=== PATIENT | male | born 1960 | race African-American/Black ===

== ENCOUNTER 2017-09-29 18:21 | Inpatient (IN) | payer MEDICAID, OTHER ==
[~2017-09-29] VITALS: Ht 170.2 cm; Wt 77.8 kg
[2017-09-29 19:32] LABS: INR 1.13 (0.9-1.15); Partial Thromboplastin Time 33.1 sec (22.64-33.71); Prothrombin Time 12.3 sec (9.37-12.3)
[2017-09-29 19:33] LABS: Albumin 2.8 g/dL (3.4-5.0); BUN/Creatinine Ratio 15.8; Calcium 8.2 mg/dL (8.5-10.1); Potassium 4.4 mmol/L (3.5-5.1)
[2017-09-29 19:35] LABS: Basophils # (auto) 0 uL; Basophils % (auto) 1.1 % (0.0-2.0); Eosinophils # (auto) 0.1 uL; Eosinophils % (auto) 3.2 % (0.0-7.0); Hemoglobin 10.7 g/dL (13.5-17.5); Lymphocytes # (auto) 0.8 uL; Lymphocytes % (auto) 19.9 % (10.0-50.0); Mean Corpuscular Hemoglobin 32.7 pg (28.0-32.0); Mean Corpuscular Hgb Conc. 32.5 g/dL (32.0-36.0); Mean Corpuscular Volume 100.8 fL (80.0-100.0); Monocytes # (auto) 0.4 uL; Monocytes % (auto) 10.1 % (0.0-12.0); Neutrophils # (auto) 2.7 uL; Neutrophils % (auto) 65.7 % (37.0-80.0); Nucleated Red Blood Cells % 0.4 %; Platelet Count (auto) 200 10^3/uL (140-450); Red Blood Cells 3.27 10^6/uL (4.5-5.90); Red Cell Distribution Width 16.1 % (11.8-14.3); White Blood Cell 4.1 10^3/uL (4.4-10.8)
[2017-09-29 19:38] LABS: Bilirubin, Total 0.4 mg/dL (0.2-1.0); Total Protein 7.4 g/dL (6.4-8.2)
[2017-09-29] MEDS ORDERED: FUROSEMIDE 20 MG/2 ML VIAL IV ONE (23:30)
[2017-09-29 23:47] LABS: Basophils # (auto) 0 uL; Basophils % (auto) 1.2 % (0.0-2.0); Eosinophils # (auto) 0.1 uL; Eosinophils % (auto) 3.7 % (0.0-7.0); Hematocrit 30.8 % (41.0-53.0); Hemoglobin 10.1 g/dL (13.5-17.5); Lymphocytes # (auto) 0.7 uL; Mean Corpuscular Hemoglobin 33.1 pg (28.0-32.0); Mean Corpuscular Hgb Conc. 32.6 g/dL (32.0-36.0); Mean Corpuscular Volume 101.4 fL (80.0-100.0); Monocytes # (auto) 0.5 uL; Monocytes % (auto) 13.4 % (0.0-12.0); Neutrophils # (auto) 2.5 uL; Neutrophils % (auto) 63.7 % (37.0-80.0); Nucleated Red Blood Cells % 0.1 %; Platelet Count (auto) 193 10^3/uL (140-450); Red Blood Cells 3.04 10^6/uL (4.5-5.90); Red Cell Distribution Width 16.1 % (11.8-14.3)
[2017-09-30 00:07] LABS: Albumin 2.7 g/dL (3.4-5.0); BUN/Creatinine Ratio 16.9; Calcium 8.5 mg/dL (8.5-10.1); Potassium 4.3 mmol/L (3.5-5.1)
[2017-09-30 00:12] LABS: Bilirubin, Total 0.4 mg/dL (0.2-1.0); Total Protein 6.9 g/dL (6.4-8.2)
[2017-09-30] MEDS ORDERED: ALBUTEROL SULF 2.5 MG/0.5ML(0.5%) NEB SOLN NEB PRN (03:30)
[2017-09-30] MEDS ORDERED: cloNIDine HCL 0.1 MG TAB PO PRN (03:30)
[2017-09-30] MEDS ORDERED: DOCUSATE SOD 100 MG CAP PO PRN (03:30)
[2017-09-30] MEDS ORDERED: HYDROcodone-ACET 5/325MG TAB PO PRN (03:30)
[2017-09-30] MEDS ORDERED: MORPHINE SULFATE 4 MG/ML SYR/VIAL IV PRN (03:30)
[2017-09-30] MEDS ORDERED: ONDANSETRON HCL 4 MG/2 ML VIAL IV PRN (03:30)
[2017-09-30] MEDS ORDERED: NITROGLYCERIN 0.4 MG SL TAB SL PRN (03:30)
[2017-09-30] MEDS ORDERED: ACETAMINOPHEN 325 MG TAB PO PRN (03:30)
[2017-09-30] MEDS: FUROSEMIDE 20 MG/2 ML VIAL IV SCH ×2 (06:13→18:16)
[2017-09-30] MEDS ORDERED: FUROSEMIDE 40 MG/4 ML VIAL IV ONE (09:15)
[2017-09-30 09:18] VITALS: BP 146/103
[2017-09-30] MEDS ORDERED: ENOXAPARIN SOD 30 MG/0.3 ML SYRINGE SC SCH (10:00)
[2017-09-30] MEDS ORDERED: LISINOPRIL 10 MG TAB PO SCH (10:00)
[2017-09-30] MEDS: CARVEDILOL 12.5 MG TAB PO SCH ×2 (10:08→22:00)
[2017-09-30] MEDS: PANTOPRAZOLE 40 MG TAB PO SCH (10:08)
[2017-09-30 10:13] LABS: Protein, Urine 19.4 mg/dL (0.0-11.9)
[2017-09-30 12:39] LABS: Urine Bacteria FEW /hpf (None Seen); Urine Blood 2+ /uL (Negative); Urine Specific Gravity 1.009 (1.001-1.035); Urine WBC 1 /hpf (0 - 3)
[2017-09-30] MEDS ORDERED: OMEP-263 (13:35)
[2017-09-30] MEDS ORDERED: SIMV-8 (13:35)
[2017-09-30] MEDS ORDERED: ALBU1.257 (13:35)
[2017-09-30] MEDS ORDERED: CARV12.544 (13:35)
[2017-09-30] MEDS ORDERED: MELO1TAB56 (13:35)
[2017-09-30] MEDS ORDERED: hydrALAZINE HCL 20 MG/ML VL IV PRN (15:00)
[2017-09-30] MEDS ORDERED: ASPirin-EC 81 mg tab PO ONE (15:15)
[2017-09-30 17:20] VITALS: BP 150/112
[2017-09-30 17:30] VITALS: BP 150/112
[2017-09-30 19:17] LABS: % Iron Saturation 15.3 % (20-55)
[2017-09-30 22:00] VITALS: BP 133/84
[2017-09-30] MEDS: ATORVASTATIN 20 MG TAB PO SCH (22:00)
[2017-10-01 05:42] VITALS: BP 145/97
[2017-10-01] MEDS: FUROSEMIDE 20 MG/2 ML VIAL IV SCH ×2 (06:02→18:16)
[2017-10-01 06:55] LABS: Basophils # (auto) 0 uL; Basophils % (auto) 0.6 % (0.0-2.0); Eosinophils # (auto) 0.1 uL; Eosinophils % (auto) 2.8 % (0.0-7.0); Hematocrit 34.7 % (41.0-53.0); Hemoglobin 11.4 g/dL (13.5-17.5); Lymphocytes # (auto) 0.8 uL; Mean Corpuscular Hgb Conc. 32.7 g/dL (32.0-36.0); Mean Corpuscular Volume 100.9 fL (80.0-100.0); Monocytes # (auto) 0.4 uL; Neutrophils # (auto) 2.3 uL; Neutrophils % (auto) 62.6 % (37.0-80.0); Nucleated Red Blood Cells % 0.3 %; Platelet Count (auto) 212 10^3/uL (140-450); Red Blood Cells 3.44 10^6/uL (4.5-5.90); Red Cell Distribution Width 15.4 % (11.8-14.3); White Blood Cell 3.6 10^3/uL (4.4-10.8)
[2017-10-01 07:21] LABS: Albumin 3.1 g/dL (3.4-5.0); BUN/Creatinine Ratio 16.7; Bilirubin, Direct 0.2 mg/dL (0-0.2); Bilirubin, Total 0.5 mg/dL (0.2-1.0); Calcium 8.8 mg/dL (8.5-10.1); Phosphorus 2.9 mg/dL (2.5-4.90); Potassium 3.7 mmol/L (3.5-5.1); Total Protein 7.6 g/dL (6.4-8.2); Uric Acid 9.3 mg/dL (3.5-7.2)
[2017-10-01 10:02] VITALS: BP 138/89
[2017-10-01] MEDS: ASPirin-EC 81 mg tab PO SCH (10:48)
[2017-10-01] MEDS: CARVEDILOL 12.5 MG TAB PO SCH ×2 (10:49→22:11)
[2017-10-01] MEDS: PANTOPRAZOLE 40 MG TAB PO SCH (10:50)
[2017-10-01] MEDS: ENOXAPARIN SOD 40 MG/0.4 ML SYRINGE SC SCH (10:51)
[2017-10-01 13:00] VITALS: BP 114/71
[2017-10-01 17:15] VITALS: BP 143/115
[2017-10-01] MEDS ORDERED: ACET-1156 PO (18:16)
[2017-10-01] MEDS ORDERED: ASPI325T4 PO (18:16)
[2017-10-01] MEDS ORDERED: BIS10RS PR (18:16)
[2017-10-01] MEDS ORDERED: ALBU1.257 IN (18:16)
[2017-10-01] MEDS ORDERED: FER325T PO (18:16)
[2017-10-01] MEDS ORDERED: MOMLQ PO (18:16)
[2017-10-01] MEDS ORDERED: OMEP20TA PO (18:16)
[2017-10-01] MEDS ORDERED: MULTTAB99 PO (18:16)
[2017-10-01] MEDS ORDERED: SODIENE35 RE (18:16)
[2017-10-01] MEDS ORDERED: CARV12.544 PO (18:16)
[2017-10-01 22:00] VITALS: BP 129/98
[2017-10-01] MEDS: ATORVASTATIN 20 MG TAB PO SCH (22:11)
[2017-10-02 05:00] VITALS: BP 139/97
[2017-10-02] MEDS: FUROSEMIDE 20 MG/2 ML VIAL IV SCH ×2 (05:58→17:37)
[2017-10-02 06:30] LABS: Calcium 8.5 mg/dL (8.5-10.1); Potassium 3.6 mmol/L (3.5-5.1)
[2017-10-02 06:34] LABS: BUN/Creatinine Ratio 16.7
[2017-10-02 09:00] VITALS: BP_SYST 117; BP_SYST 149; BP_DIAS 52; BP_DIAS 99
[2017-10-02] MEDS: PANTOPRAZOLE 40 MG TAB PO SCH (11:00)
[2017-10-02] MEDS: ASPirin-EC 81 mg tab PO SCH (11:00)
[2017-10-02] MEDS: CARVEDILOL 12.5 MG TAB PO SCH (11:00)
[2017-10-02] MEDS: ENOXAPARIN SOD 40 MG/0.4 ML SYRINGE SC SCH (11:01)
[2017-10-02 13:09] VITALS: BP 155/99
[2017-10-02 17:00] VITALS: BP 158/109
[2017-10-02 17:09] VITALS: BP 149/97
[2017-10-02 17:24] VITALS: BP 149/99
== END 2017-10-02 18:25 | disposition home or self-care (01) | DRG 469 ==
LOC: ER 18:26 → TELE 18:27 → TELE-WESTW 09-30 16:55
PROVIDERS: ADMIT Nurse Practitioner; ATTEND Family Medicine
DX: N17.0 Acute kidney failure with tubular necrosis (principal); J96.21 Acute and chronic respiratory failure with hypoxia; E43 Unspecified severe protein-calorie malnutrition; N18.3 Chronic kidney disease, stage 3 (moderate); I13.0 Hypertensive heart and chronic kidney disease with heart failure and stage 1 through stage 4 chronic kidney disease, or unspecified chronic kidney disease; D63.8 Anemia in other chronic diseases classified elsewhere; E78.5 Hyperlipidemia, unspecified; K59.00 Constipation, unspecified; N39.0 Urinary tract infection, site not specified; I49.5 Sick sinus syndrome; R79.89 Other specified abnormal findings of blood chemistry; N28.0 Ischemia and infarction of kidney; F03.90 Unspecified dementia, unspecified severity, without behavioral disturbance, psychotic disturbance, mood disturbance, and anxiety; Z95.0 Presence of cardiac pacemaker; I25.10 Atherosclerotic heart disease of native coronary artery without angina pectoris; I50.43 Acute on chronic combined systolic (congestive) and diastolic (congestive) heart failure; Z86.73 Personal history of transient ischemic attack (TIA), and cerebral infarction without residual deficits; Z68.26 Body mass index [BMI] 26.0-26.9, adult; I25.2 Old myocardial infarction; I34.0 Nonrheumatic mitral (valve) insufficiency
CPT/HCPCS: 36415; 71045; 76775; 80048; 80053; 80061; 80076; 81001; 82306; 82550; 82570; 83540; 83550; 83735; 83880; 84100; 84156; 84300; 84443; 84484; 84550; 85025; 85610; 85730; 87081; 93005; 93306; 96372; 96374; 96375

== ENCOUNTER 2018-02-02 13:51 | Inpatient (IN) | payer MEDICAID ==
[~2018-02-02] VITALS: Ht 185.4 cm; Wt 79.1 kg
[~2018-02-02 13:51] MED LIST: ACET-1156 PO; ALBU1.257 IN; ASPI-378 PO; ATO40T PO; BIS10RS PR; CARV12.544 PO; FER325T PO; FURO40TA PO; MOMLQ PO; MULTTAB99 PO; POTA1TAB61 PO; SODIENE35 RE
[2018-02-02 15:21] LABS: Basophils # (auto) 0 uL; Basophils % (auto) 0.5 % (0.0-2.0); Eosinophils # (auto) 0.1 uL; Lymphocytes # (auto) 0.4 uL; Monocytes # (auto) 0.4 uL; Monocytes % (auto) 10.5 % (0.0-12.0); Nucleated Red Blood Cells % 0.2 %
[2018-02-02 15:23] LABS: Eosinophils % (auto) 2.1 % (0.0-7.0); Hematocrit 31.6 % (41.0-53.0); Hemoglobin 10.8 g/dL (13.5-17.5); Lymphocytes % (auto) 10.7 % (10.0-50.0); Mean Corpuscular Hemoglobin 34.8 pg (28.0-32.0); Mean Corpuscular Hgb Conc. 34.2 g/dL (32.0-36.0); Mean Corpuscular Volume 101.7 fL (80.0-100.0); Neutrophils # (auto) 3.2 uL; Neutrophils % (auto) 76.2 % (37.0-80.0); Platelet Count (auto) 164 10^3/uL (140-450); Red Blood Cells 3.11 10^6/uL (4.5-5.90); Red Cell Distribution Width 14.7 % (11.8-14.3); White Blood Cell 4.2 10^3/uL (4.4-10.8)
[2018-02-02 15:35] LABS: Albumin 3.2 g/dL (3.4-5.0); BUN/Creatinine Ratio 22.1; Bilirubin, Total 0.6 mg/dL (0.2-1.0); Calcium 8.2 mg/dL (8.5-10.1); Magnesium 2.2 mg/dL (1.6-2.6); Potassium 3.9 mmol/L (3.5-5.1); Total Protein 7.6 g/dL (6.4-8.2)
[2018-02-02] MEDS ORDERED: ACETAMINOPHEN 325 MG TAB PO PRN (18:00)
[2018-02-02] MEDS ORDERED: NITROGLYCERIN 0.4 MG SL TAB SL PRN (18:00)
[2018-02-02] MEDS ORDERED: MILK OF MAGNESIA 30ML SUSP PO PRN (18:00)
[2018-02-02] MEDS ORDERED: ONDANSETRON HCL 4 MG/2 ML VIAL IV PRN (18:00)
[2018-02-02] MEDS ORDERED: DOCUSATE SOD 100 MG CAP PO PRN (18:00)
[2018-02-02] MEDS ORDERED: MORPHINE SULF INJ 2 MG/ML SYRINGE 1ML IV PRN (18:00)
[2018-02-02] MEDS: ALBUTEROL SULF 2.5 MG/0.5ML(0.5%) NEB SOLN NEB SCH ×2 (18:40→22:37)
[2018-02-02] MEDS: FUROSEMIDE 40 MG/4 ML VIAL IV SCH (18:47)
[2018-02-02 19:02] VITALS: BP 154/120
[2018-02-02] MEDS: Ensure Enlive Strawberry 8oz Bottle PO SCH (19:36)
[2018-02-02] MEDS: HYDROcodone-ACET 5/325MG TAB PO PRN (19:36)
[2018-02-02] MEDS: FERROUS SULFATE 325 MG TAB PO SCH (19:36)
[2018-02-02] MEDS: CARVEDILOL 12.5 MG TAB PO SCH (19:37)
[2018-02-02 21:40] VITALS: BP 143/104
[2018-02-02] MEDS: ATORVASTATIN 20 MG TAB PO SCH (23:27)
[2018-02-02] MEDS: SODIUM CHLOR 0.9% PF (SALINE LOCK) 10ML VIAL/SYR IV SCH (23:27)
[2018-02-02] MEDS: POTASSIUM CHL 10 Meq TABLET PO SCH (23:27)
[2018-02-02] MEDS: TEMAZEPAM 15 MG CAP PO PRN (23:28)
[2018-02-03] MEDS ORDERED: PANT40TA2 PO (01:40)
[2018-02-03] MEDS ORDERED: TEMA15CA91 PO (01:40)
[2018-02-03] MEDS ORDERED: HYDR-4683 PO (01:40)
[2018-02-03] MEDS ORDERED: BIS10RS PR (01:40)
[2018-02-03] MEDS: ALBUTEROL SULF 2.5 MG/0.5ML(0.5%) NEB SOLN NEB SCH ×7 (02:25→23:01)
[2018-02-03 03:50] LABS: Urine Bacteria NONE SEEN /hpf (None Seen); Urine Blood 2+ /uL (Negative); Urine Mucus FEW (None Seen); Urine Specific Gravity 1.008 (1.001-1.035); Urine WBC 1 /hpf (0 - 3)
[2018-02-03 05:38] VITALS: BP 139/89
[2018-02-03] MEDS: FUROSEMIDE 40 MG/4 ML VIAL IV SCH ×2 (05:38→18:00)
[2018-02-03] MEDS: SODIUM CHLOR 0.9% PF (SALINE LOCK) 10ML VIAL/SYR IV SCH ×3 (05:38→21:43)
[2018-02-03 07:13] LABS: Basophils # (auto) 0 uL; Eosinophils # (auto) 0.2 uL; Monocytes # (auto) 0.4 uL; Monocytes % (auto) 13.6 % (0.0-12.0); Neutrophils # (auto) 1.9 uL; Nucleated Red Blood Cells % 0.1 %; Platelet Count (auto) 154 10^3/uL (140-450); White Blood Cell 3.2 10^3/uL (4.4-10.8)
[2018-02-03 07:16] LABS: Basophils % (auto) 0.8 % (0.0-2.0); Eosinophils % (auto) 4.8 % (0.0-7.0); Hemoglobin 10.7 g/dL (13.5-17.5); Lymphocytes # (auto) 0.6 uL; Lymphocytes % (auto) 20.2 % (10.0-50.0); Mean Corpuscular Hemoglobin 34.2 pg (28.0-32.0); Mean Corpuscular Hgb Conc. 33.4 g/dL (32.0-36.0); Mean Corpuscular Volume 102.4 fL (80.0-100.0); Neutrophils % (auto) 60.6 % (37.0-80.0); Red Blood Cells 3.12 10^6/uL (4.5-5.90); Red Cell Distribution Width 15.1 % (11.8-14.3)
[2018-02-03 08:07] LABS: Albumin 2.9 g/dL (3.4-5.0); Bilirubin, Total 0.6 mg/dL (0.2-1.0); Calcium 8.3 mg/dL (8.5-10.1); Potassium 3.7 mmol/L (3.5-5.1); Total Protein 6.8 g/dL (6.4-8.2)
[2018-02-03 08:47] VITALS: BP 145/106
[2018-02-03] MEDS: POTASSIUM CHL 10 Meq TABLET PO SCH ×2 (09:34→21:34)
[2018-02-03] MEDS: FERROUS SULFATE 325 MG TAB PO SCH ×2 (09:35→19:17)
[2018-02-03] MEDS: PANTOPRAZOLE 40 MG TAB PO SCH (09:35)
[2018-02-03] MEDS: Ensure Enlive Strawberry 8oz Bottle PO SCH ×3 (09:36→19:17)
[2018-02-03] MEDS: CARVEDILOL 12.5 MG TAB PO SCH ×2 (09:37→21:35)
[2018-02-03] MEDS: MULTIPLE VITAMIN TAB PO SCH (09:37)
[2018-02-03 13:00] VITALS: BP 147/102
[2018-02-03] MEDS ORDERED: SODIUM CHLORIDE 0.9% 1,000 ML IV SCH (16:30)
[2018-02-03] MEDS ORDERED: ACETYLCYSTEINE ORAL for CIN 20%(200MG/ML) 4ML PO ONE (16:30)
[2018-02-03 17:33] LABS: Folate (Folic Acid) 13.54 ng/mL (5.38-24)
[2018-02-03 18:55] LABS: INR 1.23 (0.9-1.15)
[2018-02-03 21:28] VITALS: BP 138/77
[2018-02-03] MEDS: ATORVASTATIN 20 MG TAB PO SCH (21:34)
[2018-02-03] MEDS: TEMAZEPAM 15 MG CAP PO PRN (22:40)
[2018-02-04] MEDS: HYDROcodone-ACET 5/325MG TAB PO PRN (01:23)
[2018-02-04 04:57] VITALS: BP 140/100
[2018-02-04] MEDS: FUROSEMIDE 40 MG/4 ML VIAL IV SCH ×2 (05:33→18:00)
[2018-02-04] MEDS ORDERED: SODIUM CHLORIDE 0.9 % NEB SOLN 3ML NEB ONE ×2 (05:45→14:24)
[2018-02-04] MEDS: SODIUM CHLOR 0.9% PF (SALINE LOCK) 10ML VIAL/SYR IV SCH ×3 (06:00→22:41)
[2018-02-04] MEDS: ACETYLCYSTEINE ORAL for CIN 20%(200MG/ML) 4ML PO SCH ×2 (06:00→18:01)
[2018-02-04 06:44] LABS: INR 1.22 (0.9-1.15); Partial Thromboplastin Time 35.2 sec (23.78-33.04); Prothrombin Time 12.9 sec (9.27-12.13)
[2018-02-04] MEDS: ALBUTEROL SULF 2.5 MG/0.5ML(0.5%) NEB SOLN NEB SCH ×5 (06:47→22:23)
[2018-02-04] MEDS ORDERED: LIDOCAINE 2% (LOCAL ANESTH.) PF 5ml SDV ONE ×2 (07:29→08:06)
[2018-02-04] MEDS ORDERED: IODIXANOL 320MG/ML 100ML BTL IV ONE (07:29)
[2018-02-04] MEDS ORDERED: ANGIOMAX 250 MG VIAL IV ONE (07:48)
[2018-02-04] MEDS ORDERED: fentaNYL CITRATE 100 MCG/2 ML VL ONE (07:48)
[2018-02-04] MEDS ORDERED: MIDAZOLAM HCL 1MG/1ML-2 ML VIAL ONE (07:48)
[2018-02-04] MEDS ORDERED: VERAPAMIL 2.5MG/ML INJ 2ML VIAL IV ONE (07:48)
[2018-02-04] MEDS ORDERED: EPTIFIBATIDE INJ (2MG/ML) 10ML VIAL IV ONE (07:49)
[2018-02-04] MEDS ORDERED: SODIUM CHL 0.9% 0 ML ONE (07:49)
[2018-02-04] MEDS ORDERED: SODIUM CHL 0.9% 50 ML ONE (07:50)
[2018-02-04] MEDS ORDERED: HEPARIN SODIUM (PORCINE) 5000 UNITS/ML 1ML VIAL ONE (07:57)
[2018-02-04 08:37] VITALS: BP 144/104
[2018-02-04] MEDS ORDERED: SODIUM CHLORIDE 0.9% 1,000 ML IV SCH ×2 (09:00→10:15)
[2018-02-04] MEDS: FERROUS SULFATE 325 MG TAB PO SCH ×2 (10:20→18:01)
[2018-02-04] MEDS: Ensure Enlive Strawberry 8oz Bottle PO SCH ×3 (10:21→18:01)
[2018-02-04] MEDS: CARVEDILOL 12.5 MG TAB PO SCH ×2 (10:21→22:39)
[2018-02-04] MEDS: POTASSIUM CHL 10 Meq TABLET PO SCH ×2 (10:21→22:40)
[2018-02-04] MEDS: MULTIPLE VITAMIN TAB PO SCH (10:22)
[2018-02-04] MEDS: PANTOPRAZOLE 40 MG TAB PO SCH (10:22)
[2018-02-04 12:03] LABS: Basophils # (auto) 0 uL; Basophils % (auto) 0.6 % (0.0-2.0); Eosinophils # (auto) 0.1 uL; Eosinophils % (auto) 2.8 % (0.0-7.0); Hematocrit 35.4 % (41.0-53.0); Hemoglobin 11.3 g/dL (13.5-17.5); Lymphocytes # (auto) 0.5 uL; Lymphocytes % (auto) 10.7 % (10.0-50.0); Mean Corpuscular Hemoglobin 32.7 pg (28.0-32.0); Mean Corpuscular Volume 102.2 fL (80.0-100.0); Monocytes # (auto) 0.6 uL; Monocytes % (auto) 13.1 % (0.0-12.0); Neutrophils # (auto) 3.5 uL; Neutrophils % (auto) 72.8 % (37.0-80.0); Nucleated Red Blood Cells % 0.3 %; Platelet Count (auto) 163 10^3/uL (140-450); Red Blood Cells 3.47 10^6/uL (4.5-5.90); Red Cell Distribution Width 15.1 % (11.8-14.3); White Blood Cell 4.8 10^3/uL (4.4-10.8)
[2018-02-04] MEDS: HALOPERIDOL LACTATE 5 MG/ML INJ VIAL IV PRN (12:13)
[2018-02-04 12:18] LABS: BUN/Creatinine Ratio 22.4; Calcium 8.1 mg/dL (8.5-10.1); Potassium 4.1 mmol/L (3.5-5.1)
[2018-02-04 13:11] VITALS: BP 148/108
[2018-02-04 16:27] VITALS: BP 162/114
[2018-02-04] MEDS ORDERED: ASPirin 81 mg TAB PO ONE (18:00)
[2018-02-04] MEDS: hydrALAZINE HCL 20 MG/ML VL IV PRN (18:02)
[2018-02-04 21:54] VITALS: BP 146/104
[2018-02-04] MEDS ORDERED: ATORVASTATIN 20 MG TAB PO SCH (22:00)
[2018-02-04] MEDS: ATORVASTATIN 20 MG TAB PO SCH (22:40)
[2018-02-05] MEDS: ALBUTEROL SULF 2.5 MG/0.5ML(0.5%) NEB SOLN NEB SCH ×6 (02:23→22:18)
[2018-02-05] MEDS: ACETYLCYSTEINE ORAL for CIN 20%(200MG/ML) 4ML PO SCH (06:00)
[2018-02-05] MEDS: FUROSEMIDE 40 MG/4 ML VIAL IV SCH ×2 (06:15→18:08)
[2018-02-05] MEDS: SODIUM CHLOR 0.9% PF (SALINE LOCK) 10ML VIAL/SYR IV SCH ×3 (06:16→22:00)
[2018-02-05 06:35] VITALS: BP 153/114
[2018-02-05] MEDS: HALOPERIDOL LACTATE 5 MG/ML INJ VIAL IV PRN (06:54)
[2018-02-05] MEDS: hydrALAZINE HCL 20 MG/ML VL IV PRN (06:54)
[2018-02-05 08:55] VITALS: BP 147/103
[2018-02-05] MEDS: Ensure Enlive Strawberry 8oz Bottle PO SCH ×3 (09:43→18:09)
[2018-02-05] MEDS: FERROUS SULFATE 325 MG TAB PO SCH ×2 (09:43→18:09)
[2018-02-05] MEDS: ASPirin 81 mg TAB PO SCH (09:43)
[2018-02-05] MEDS: CARVEDILOL 12.5 MG TAB PO SCH (09:44)
[2018-02-05] MEDS: MULTIPLE VITAMIN TAB PO SCH (09:45)
[2018-02-05] MEDS: PANTOPRAZOLE 40 MG TAB PO SCH (09:45)
[2018-02-05] MEDS: POTASSIUM CHL 10 Meq TABLET PO SCH (09:45)
[2018-02-05] MEDS: HYDROcodone-ACET 5/325MG TAB PO PRN (10:30)
[2018-02-05 11:00] LABS: Basophils # (auto) 0 uL; Eosinophils # (auto) 0.1 uL; Lymphocytes # (auto) 0.5 uL; Monocytes # (auto) 0.7 uL; Neutrophils # (auto) 5.1 uL; Nucleated Red Blood Cells % 0.2 %; White Blood Cell 6.3 10^3/uL (4.4-10.8)
[2018-02-05 11:02] LABS: Basophils % (auto) 0.5 % (0.0-2.0); Eosinophils % (auto) 1.5 % (0.0-7.0); Hematocrit 35.9 % (41.0-53.0); Hemoglobin 11.8 g/dL (13.5-17.5); Lymphocytes % (auto) 7.2 % (10.0-50.0); Mean Corpuscular Hemoglobin 33.7 pg (28.0-32.0); Mean Corpuscular Volume 102.3 fL (80.0-100.0); Monocytes % (auto) 10.3 % (0.0-12.0); Neutrophils % (auto) 80.5 % (37.0-80.0); Platelet Count (auto) 183 10^3/uL (140-450); Red Blood Cells 3.51 10^6/uL (4.5-5.90); Red Cell Distribution Width 15.4 % (11.8-14.3)
[2018-02-05 11:13] LABS: BUN/Creatinine Ratio 25.4; Calcium 8.4 mg/dL (8.5-10.1); Magnesium 2.4 mg/dL (1.6-2.6); Potassium 3.6 mmol/L (3.5-5.1)
[2018-02-05] MEDS ORDERED: NIFEdipine ER 30 MG TAB PO ONE (12:45)
[2018-02-05 13:18] VITALS: BP 137/81
[2018-02-05 17:29] VITALS: BP 129/82
[2018-02-05 22:00] VITALS: BP 137/93
[2018-02-06] VITALS (7 sets, daily range): BP systolic 115–137; BP diastolic 65–93
[2018-02-06] MEDS: CARVEDILOL 12.5 MG TAB PO SCH ×3 (00:47→21:48)
[2018-02-06] MEDS: POTASSIUM CHL 10 Meq TABLET PO SCH ×3 (00:47→21:48)
[2018-02-06] MEDS: ATORVASTATIN 20 MG TAB PO SCH ×2 (00:48→21:48)
[2018-02-06] MEDS: ALBUTEROL SULF 2.5 MG/0.5ML(0.5%) NEB SOLN NEB SCH ×6 (02:45→21:52)
[2018-02-06] MEDS: SODIUM CHLOR 0.9% PF (SALINE LOCK) 10ML VIAL/SYR IV SCH ×3 (06:35→21:47)
[2018-02-06] MEDS: FUROSEMIDE 40 MG/4 ML VIAL IV SCH ×2 (06:35→17:53)
[2018-02-06] MEDS: Ensure Enlive Strawberry 8oz Bottle PO SCH ×3 (08:18→17:53)
[2018-02-06] MEDS: FERROUS SULFATE 325 MG TAB PO SCH ×2 (08:30→17:53)
[2018-02-06] MEDS: NIFEdipine ER 30 MG TAB PO SCH (09:14)
[2018-02-06] MEDS: ASPirin 81 mg TAB PO SCH (09:14)
[2018-02-06] MEDS: PANTOPRAZOLE 40 MG TAB PO SCH (09:14)
[2018-02-06] MEDS: MULTIPLE VITAMIN TAB PO SCH (09:14)
[2018-02-06 13:22] LABS: Calcium 8.5 mg/dL (8.5-10.1)
[2018-02-07] MEDS: ALBUTEROL SULF 2.5 MG/0.5ML(0.5%) NEB SOLN NEB SCH ×6 (01:46→21:51)
[2018-02-07 05:47] VITALS: BP 125/70
[2018-02-07] MEDS: FUROSEMIDE 40 MG/4 ML VIAL IV SCH ×2 (05:50→17:37)
[2018-02-07] MEDS: SODIUM CHLOR 0.9% PF (SALINE LOCK) 10ML VIAL/SYR IV SCH ×3 (05:50→21:43)
[2018-02-07 06:17] LABS: Basophils # (auto) 0 uL; Eosinophils # (auto) 0.2 uL; Lymphocytes # (auto) 0.7 uL; Monocytes # (auto) 0.7 uL; Neutrophils # (auto) 3.9 uL; White Blood Cell 5.5 10^3/uL (4.4-10.8)
[2018-02-07 06:20] LABS: Basophils % (auto) 0.4 % (0.0-2.0); Eosinophils % (auto) 3.7 % (0.0-7.0); Hematocrit 33.6 % (41.0-53.0); Lymphocytes % (auto) 13.2 % (10.0-50.0); Mean Corpuscular Hemoglobin 33.1 pg (28.0-32.0); Mean Corpuscular Hgb Conc. 32.7 g/dL (32.0-36.0); Mean Corpuscular Volume 101.1 fL (80.0-100.0); Monocytes % (auto) 11.9 % (0.0-12.0); Neutrophils % (auto) 70.8 % (37.0-80.0); Platelet Count (auto) 208 10^3/uL (140-450); Red Blood Cells 3.33 10^6/uL (4.5-5.90); Red Cell Distribution Width 14.7 % (11.8-14.3)
[2018-02-07 06:37] LABS: BUN/Creatinine Ratio 28.4; Calcium 8.6 mg/dL (8.5-10.1); Potassium 4.4 mmol/L (3.5-5.1)
[2018-02-07] MEDS: HYDROcodone-ACET 5/325MG TAB PO PRN (06:48)
[2018-02-07 08:00] VITALS: BP 117/73
[2018-02-07] MEDS: MULTIPLE VITAMIN TAB PO SCH (09:10)
[2018-02-07] MEDS: ASPirin 81 mg TAB PO SCH (09:11)
[2018-02-07] MEDS: PANTOPRAZOLE 40 MG TAB PO SCH (09:11)
[2018-02-07] MEDS: NIFEdipine ER 30 MG TAB PO SCH (09:11)
[2018-02-07] MEDS: Ensure Enlive Strawberry 8oz Bottle PO SCH ×3 (09:12→18:03)
[2018-02-07] MEDS: CARVEDILOL 12.5 MG TAB PO SCH ×2 (09:12→21:43)
[2018-02-07] MEDS: POTASSIUM CHL 10 Meq TABLET PO SCH ×2 (09:12→21:44)
[2018-02-07] MEDS: FERROUS SULFATE 325 MG TAB PO SCH ×2 (09:12→17:36)
[2018-02-07 09:45] VITALS: BP 117/73
[2018-02-07 13:00] VITALS: BP 117/79
[2018-02-07] MEDS: HALOPERIDOL LACTATE 5 MG/ML INJ VIAL IM PRN (13:02)
[2018-02-07 17:18] VITALS: BP 121/74
[2018-02-07 21:30] VITALS: BP 130/83
[2018-02-07] MEDS: ATORVASTATIN 20 MG TAB PO SCH (21:44)
[2018-02-08] MEDS: ALBUTEROL SULF 2.5 MG/0.5ML(0.5%) NEB SOLN NEB SCH ×6 (01:56→22:29)
[2018-02-08 04:30] VITALS: BP 121/76
[2018-02-08] MEDS: FUROSEMIDE 40 MG/4 ML VIAL IV SCH ×2 (05:34→18:34)
[2018-02-08] MEDS: SODIUM CHLOR 0.9% PF (SALINE LOCK) 10ML VIAL/SYR IV SCH ×3 (05:34→21:35)
[2018-02-08 06:05] LABS: Eosinophils # (auto) 0.2 uL; Hemoglobin 12.2 g/dL (13.5-17.5); Neutrophils # (auto) 4.2 uL; Nucleated Red Blood Cells % 0.1 %; White Blood Cell 6.1 10^3/uL (4.4-10.8)
[2018-02-08 06:08] LABS: Basophils # (auto) 0 uL; Basophils % (auto) 0.6 % (0.0-2.0); Eosinophils % (auto) 3.8 % (0.0-7.0); Hematocrit 36.4 % (41.0-53.0); Lymphocytes # (auto) 0.8 uL; Lymphocytes % (auto) 12.9 % (10.0-50.0); Mean Corpuscular Hemoglobin 34.3 pg (28.0-32.0); Mean Corpuscular Hgb Conc. 33.6 g/dL (32.0-36.0); Mean Corpuscular Volume 102.1 fL (80.0-100.0); Monocytes # (auto) 0.8 uL; Monocytes % (auto) 13.5 % (0.0-12.0); Neutrophils % (auto) 69.2 % (37.0-80.0); Platelet Count (auto) 210 10^3/uL (140-450); Red Blood Cells 3.57 10^6/uL (4.5-5.90); Red Cell Distribution Width 14.7 % (11.8-14.3)
[2018-02-08 06:39] LABS: BUN/Creatinine Ratio 29.9; Calcium 8.7 mg/dL (8.5-10.1); Potassium 4.6 mmol/L (3.5-5.1)
[2018-02-08 08:23] VITALS: BP 123/87
[2018-02-08] MEDS: ASPirin 81 mg TAB PO SCH (10:00)
[2018-02-08] MEDS: MULTIPLE VITAMIN TAB PO SCH (11:16)
[2018-02-08] MEDS: NIFEdipine ER 30 MG TAB PO SCH (11:17)
[2018-02-08] MEDS: CARVEDILOL 12.5 MG TAB PO SCH ×2 (11:17→21:35)
[2018-02-08] MEDS: FERROUS SULFATE 325 MG TAB PO SCH ×2 (11:17→18:33)
[2018-02-08] MEDS: POTASSIUM CHL 10 Meq TABLET PO SCH ×2 (11:18→21:35)
[2018-02-08] MEDS: Ensure Enlive Strawberry 8oz Bottle PO SCH ×3 (11:18→19:51)
[2018-02-08] MEDS: PANTOPRAZOLE 40 MG TAB PO SCH (11:18)
[2018-02-08] MEDS ORDERED: MORPHINE SULF INJ 2 MG/ML SYRINGE 1ML IV PRN ×2 (12:15→16:00)
[2018-02-08] MEDS ORDERED: HYDROcodone-ACET 5/325MG TAB PO PRN (12:15)
[2018-02-08 12:35] VITALS: BP 142/85
[2018-02-08 17:00] VITALS: BP 120/61
[2018-02-08 21:28] VITALS: BP 119/80
[2018-02-08] MEDS: ATORVASTATIN 20 MG TAB PO SCH (21:35)
[2018-02-08 21:36] VITALS: BP 119/80
[2018-02-09] MEDS: ALBUTEROL SULF 2.5 MG/0.5ML(0.5%) NEB SOLN NEB SCH ×6 (02:10→22:17)
[2018-02-09 04:52] VITALS: BP 119/75
[2018-02-09] MEDS: FUROSEMIDE 40 MG/4 ML VIAL IV SCH ×2 (05:40→18:32)
[2018-02-09] MEDS: SODIUM CHLOR 0.9% PF (SALINE LOCK) 10ML VIAL/SYR IV SCH ×3 (05:40→21:42)
[2018-02-09 08:00] VITALS: BP 136/76
[2018-02-09] MEDS: FERROUS SULFATE 325 MG TAB PO SCH ×2 (08:00→19:09)
[2018-02-09] MEDS: Ensure Enlive Strawberry 8oz Bottle PO SCH ×3 (08:00→19:09)
[2018-02-09 08:43] LABS: BUN/Creatinine Ratio 30.6; Calcium 8.8 mg/dL (8.5-10.1); Potassium 4.5 mmol/L (3.5-5.1)
[2018-02-09] MEDS: MULTIPLE VITAMIN TAB PO SCH (10:00)
[2018-02-09] MEDS: PANTOPRAZOLE 40 MG TAB PO SCH (10:00)
[2018-02-09] MEDS: POTASSIUM CHL 10 Meq TABLET PO SCH ×2 (10:30→21:42)
[2018-02-09] MEDS: CARVEDILOL 12.5 MG TAB PO SCH ×2 (10:32→21:42)
[2018-02-09] MEDS: ASPirin 81 mg TAB PO SCH (10:32)
[2018-02-09] MEDS: NIFEdipine ER 30 MG TAB PO SCH (10:32)
[2018-02-09 12:00] VITALS: BP 113/65
[2018-02-09] MEDS ORDERED: IODIXANOL 320MG/ML 100ML BTL IV ONE (13:54)
[2018-02-09] MEDS ORDERED: LIDOCAINE 2% (LOCAL ANESTH.) PF 5ml SDV ONE (13:54)
[2018-02-09] MEDS ORDERED: fentaNYL CITRATE 100 MCG/2 ML VL ONE (14:05)
[2018-02-09] MEDS ORDERED: ANGIOMAX 250 MG VIAL IV ONE (14:05)
[2018-02-09] MEDS ORDERED: MIDAZOLAM HCL 1MG/1ML-2 ML VIAL ONE (14:06)
[2018-02-09] MEDS ORDERED: SODIUM CHL 0.9% 0 ML ONE (14:06)
[2018-02-09] MEDS ORDERED: HEPARIN SODIUM (PORCINE) 5000 UNITS/ML 1ML VIAL ONE (14:07)
[2018-02-09] MEDS ORDERED: VERAPAMIL 2.5MG/ML INJ 2ML VIAL IV ONE (14:07)
[2018-02-09] MEDS ORDERED: SODIUM CHLORIDE 0.9% 1,000 ML IV SCH (15:18)
[2018-02-09 16:00] VITALS: BP 124/71
[2018-02-09] MEDS: ATORVASTATIN 20 MG TAB PO SCH (21:42)
[2018-02-09 22:14] VITALS: BP 101/67
[2018-02-10] MEDS: ALBUTEROL SULF 2.5 MG/0.5ML(0.5%) NEB SOLN NEB SCH ×4 (01:48→14:56)
[2018-02-10 05:17] VITALS: BP 117/76
[2018-02-10] MEDS: SODIUM CHLOR 0.9% PF (SALINE LOCK) 10ML VIAL/SYR IV SCH ×2 (05:37→15:09)
[2018-02-10] MEDS: FUROSEMIDE 40 MG/4 ML VIAL IV SCH ×2 (05:37→18:00)
[2018-02-10 07:28] LABS: BUN/Creatinine Ratio 29.6; Calcium 8.7 mg/dL (8.5-10.1); Potassium 4.7 mmol/L (3.5-5.1)
[2018-02-10] MEDS ORDERED: TEMAZEPAM 15 MG CAP PO PRN (10:00)
[2018-02-10] MEDS: HALOPERIDOL LACTATE 5 MG/ML INJ VIAL IM PRN (11:29)
[2018-02-10] MEDS: Ensure Enlive Strawberry 8oz Bottle PO SCH ×3 (12:00→18:00)
[2018-02-10] MEDS: ASPirin 81 mg TAB PO SCH (15:07)
[2018-02-10] MEDS: FERROUS SULFATE 325 MG TAB PO SCH ×2 (15:07→18:00)
[2018-02-10] MEDS: POTASSIUM CHL 10 Meq TABLET PO SCH (15:08)
[2018-02-10] MEDS: NIFEdipine ER 30 MG TAB PO SCH (15:08)
[2018-02-10] MEDS: MULTIPLE VITAMIN TAB PO SCH (15:08)
[2018-02-10] MEDS: CARVEDILOL 12.5 MG TAB PO SCH (15:08)
[2018-02-10] MEDS: PANTOPRAZOLE 40 MG TAB PO SCH (15:09)
== END 2018-02-10 18:25 | DRG 192 ==
LOC: ER 13:51 → EDBD 13:51 → TELE 13:52 → TELE-WESTW 21:32
PROVIDERS: ADMIT Internal Medicine; ATTEND Internal Medicine
PROC: B2111ZZ Fluoroscopy of Multiple Coronary Arteries using Low Osmolar Contrast (ICD-10-PCS; principal; 2018-02-04)
PROC: 4A023N7 Measurement of Cardiac Sampling and Pressure, Left Heart, Percutaneous Approach (ICD-10-PCS; 2018-02-09)
PROC: B2111ZZ Fluoroscopy of Multiple Coronary Arteries using Low Osmolar Contrast (ICD-10-PCS; 2018-02-09)
PROC: B2151ZZ Fluoroscopy of Left Heart using Low Osmolar Contrast (ICD-10-PCS; 2018-02-09)
DX: I27.20 Pulmonary hypertension, unspecified (principal); J96.21 Acute and chronic respiratory failure with hypoxia; I50.43 Acute on chronic combined systolic (congestive) and diastolic (congestive) heart failure; I42.0 Dilated cardiomyopathy; E44.0 Moderate protein-calorie malnutrition; E83.51 Hypocalcemia; I42.2 Other hypertrophic cardiomyopathy; I13.0 Hypertensive heart and chronic kidney disease with heart failure and stage 1 through stage 4 chronic kidney disease, or unspecified chronic kidney disease; N18.3 Chronic kidney disease, stage 3 (moderate); D53.9 Nutritional anemia, unspecified; Z68.23 Body mass index [BMI] 23.0-23.9, adult; I25.10 Atherosclerotic heart disease of native coronary artery without angina pectoris; F17.200 Nicotine dependence, unspecified, uncomplicated; F03.90 Unspecified dementia, unspecified severity, without behavioral disturbance, psychotic disturbance, mood disturbance, and anxiety; I73.9 Peripheral vascular disease, unspecified; E86.0 Dehydration; D63.8 Anemia in other chronic diseases classified elsewhere; R73.9 Hyperglycemia, unspecified; I34.0 Nonrheumatic mitral (valve) insufficiency; J44.9 Chronic obstructive pulmonary disease, unspecified; Z80.3 Family history of malignant neoplasm of breast; I25.2 Old myocardial infarction; Z82.49 Family history of ischemic heart disease and other diseases of the circulatory system; Z86.73 Personal history of transient ischemic attack (TIA), and cerebral infarction without residual deficits
CPT/HCPCS: 36415; 36600; 51702; 71045; 72170; 80048; 80053; 81001; 82607; 82746; 82805; 82962; 83605; 83735; 83880; 84484; 85025; 85610; 85730; 86850; 86900; 86901; 87040; 87081; 87086; 93005; 93306; 93458; 94640; 96374; 97110; 97116; 97530; 99152; A6257; J2001; J2250; Q9967

== ENCOUNTER 2019-04-09 13:00 | Inpatient (IN) | payer MEDICAID ==
[~2019-04-09] VITALS: Ht 167.6 cm; Wt 63.0 kg
[2019-04-09] VITALS (14 sets, daily range): BP systolic 90–127; BP diastolic 55–71
[~2019-04-09 13:00] MED LIST changes: +FURO1TAB31 PO; -FURO40TA PO; +HYDR-4833 PO; +PANT40TA2 PO; +TEMA15CA91 PO
[2019-04-09] MEDS ORDERED: LIDOCAINE 1% HCL (LOCAL ANESTH.) INJ 20ML MDV ONE (13:06)
[2019-04-09] MEDS: MIDAZOLAM DRIP 50 mg/50mL 50 ML IV SCH (13:08)
[2019-04-09] MEDS ORDERED: NOREPINEPHRINE 8 MG/250ML KIT 250 ML IV ONE (13:17)
[2019-04-09] MEDS: NOREPINEPHRINE 8 MG/250ML KIT 250 ML IV SCH (13:20)
[2019-04-09] MEDS: PHENYLEPHRINE INJ 20 MG in SODIUM CHL 0.9% 250 ML IV SCH ×2 (14:15→18:54)
[2019-04-09] MEDS ORDERED: ACETAMINOPHEN 650 MG RECT SUPP PR ONE ×3 (14:25→16:15)
[2019-04-09] MEDS ORDERED: PIPERACILLIN-TAZOB 3.375GM 100 ML IV ONE (14:45)
[2019-04-09] MEDS ORDERED: VANCOMYCIN 1GM/250ML 250 ML IV ONE (14:45)
[2019-04-09 16:06] LABS: Basophils # (auto) 0 uL; Basophils % (auto) 0.3 % (0.0-2.0); Eosinophils # (auto) 0 uL; Hematocrit 23.2 % (41.0-53.0); Hemoglobin 7.4 g/dL (13.5-17.5); Lymphocytes # (auto) 0.7 uL; Lymphocytes % (auto) 8.6 % (10.0-50.0); Mean Corpuscular Hemoglobin 36.1 pg (28.0-32.0); Mean Corpuscular Hgb Conc. 32.1 g/dL (32.0-36.0); Mean Corpuscular Volume 112.6 fL (80.0-100.0); Monocytes # (auto) 0.8 uL; Monocytes % (auto) 10.4 % (0.0-12.0); Neutrophils # (auto) 6.1 uL; Neutrophils % (auto) 80.7 % (37.0-80.0); Nucleated Red Blood Cells % 0.4 %; Platelet Count (auto) 120 10^3/uL (140-450); Red Blood Cells 2.06 10^6/uL (4.5-5.90); Red Cell Distribution Width 14.4 % (11.8-14.3); White Blood Cell 7.6 10^3/uL (4.4-10.8)
[2019-04-09] MEDS ORDERED: SODIUM CHLORIDE 0.9% 2,000 ML IV ONE (16:15)
[2019-04-09 16:19] LABS: Albumin 2.6 g/dL (3.4-5.0); Calcium 8.8 mg/dL (8.5-10.1)
[2019-04-09 16:22] LABS: BUN/Creatinine Ratio 47.4; Bilirubin, Total 0.8 mg/dL (0.2-1.0); Lactic Acid w/Reflex 2.2 mmol/L (0.4-2.0); Total Protein 7.4 g/dL (6.4-8.2)
[2019-04-09] MEDS ORDERED: MORPHINE SULF INJ 2 MG/ML SYRINGE 1ML IV PRN (18:30)
[2019-04-09] MEDS ORDERED: ALBUTEROL SULF 2.5 MG/0.5ML(0.5%) NEB SOLN NEB PRN (18:30)
[2019-04-09] MEDS ORDERED: LACTULOSE 20Gm/30ML SOLN PO PRN (18:30)
[2019-04-09] MEDS ORDERED: PANTOPRAZOLE 40 MG/10 ML VIAL INJ IV ONE (18:30)
[2019-04-09] MEDS ORDERED: SODIUM CHLORIDE 0.9% 1,000 ML IV ONE (18:30)
[2019-04-09] MEDS ORDERED: NITROGLYCERIN 0.4 MG SL TAB SL PRN (18:30)
[2019-04-09] MEDS: SOD CHL 0.45% 1,000 ML IV SCH (20:10)
[2019-04-09] MEDS: AZITHROMYCIN 500MG/ 250ML 250 ML IV SCH (20:14)
[2019-04-09] MEDS ORDERED: PHENYLEPHRINE IV 250 ML IV ONE ×2 (20:56→22:50)
[2019-04-09] MEDS: LINEZOLID 600MG/300ML 300 ML IV SCH ×2 (22:00→22:03)
[2019-04-09] MEDS: HYDROCORTISONE SOD SUCC 100 MG/2ML INJ VIAL IV SCH (22:03)
[2019-04-09] MEDS: PIPERACILLIN-TAZOB 2.25GM 50 ML IV SCH (22:03)
[2019-04-10] VITALS (113 sets, daily range): BP systolic 76–140; BP diastolic 48–80
[2019-04-10] MEDS: ALBUTEROL SULF 2.5 MG/0.5ML(0.5%) NEB SOLN NEB SCH ×4 (00:15→17:59)
[2019-04-10 01:13] LABS: Hematocrit 21.3 % (41.0-53.0)
[2019-04-10] MEDS ORDERED: PHENYLEPHRINE IV 250 ML IV ONE (01:20)
[2019-04-10] MEDS: SOD CHL 0.45% 1,000 ML IV SCH ×2 (02:55→11:14)
[2019-04-10] MEDS: PIPERACILLIN-TAZOB 2.25GM 50 ML IV SCH ×4 (04:30→23:00)
[2019-04-10 05:02] LABS: Basophils # (auto) 0 uL; Basophils % (auto) 0.3 % (0.0-2.0); Eosinophils # (auto) 0 uL; Hematocrit 18.3 % (41.0-53.0); Lymphocytes # (auto) 0.4 uL; Lymphocytes % (auto) 6.4 % (10.0-50.0); Mean Corpuscular Hemoglobin 36.4 pg (28.0-32.0); Mean Corpuscular Hgb Conc. 32.3 g/dL (32.0-36.0); Mean Corpuscular Volume 112.8 fL (80.0-100.0); Monocytes # (auto) 0.4 uL; Monocytes % (auto) 5.1 % (0.0-12.0); Neutrophils # (auto) 6.1 uL; Neutrophils % (auto) 88.2 % (37.0-80.0); Nucleated Red Blood Cells % 0.4 %; Platelet Count (auto) 98 10^3/uL (140-450); Red Blood Cells 1.63 10^6/uL (4.5-5.90)
[2019-04-10 05:05] LABS: Hemoglobin 5.9 g/dL (13.5-17.5)
[2019-04-10 05:10] LABS: Potassium 4.8 mmol/L (3.5-5.1)
--- NOTE | 2019-04-10 05:15 | NUR ---
critical hgb lab called with critical hgb. mesfin tripathi md.
[2019-04-10 05:17] LABS: Albumin 2.4 g/dL (3.4-5.0); BUN/Creatinine Ratio 46.6; Calcium 8.1 mg/dL (8.5-10.1)
--- NOTE | 2019-04-10 05:20 | NUR ---
hospitalist paged about critical labs hospitalist paged, awaiting call back
[2019-04-10 05:26] LABS: Bilirubin, Total 0.8 mg/dL (0.2-1.0); Total Protein 6.9 g/dL (6.4-8.2)
--- NOTE | 2019-04-10 05:29 | NUR ---
hospital called orders received, orders read back and verified.
[2019-04-10] MEDS: HYDROCORTISONE SOD SUCC 100 MG/2ML INJ VIAL IV SCH (06:06)
[2019-04-10] MEDS: PHENYLEPHRINE INJ 20 MG in SODIUM CHL 0.9% 250 ML IV SCH ×2 (06:07→14:39)
--- NOTE | 2019-04-10 07:10 | NUR ---
OPENING NOTE SHIFT REPORT RECEIVED AND ASSUMED CARE OF PT FROM MATA BUTT
--- NOTE | 2019-04-10 10:00 | NUR ---
1ST UNIT OF PRBC STARTED. SEE VITAL SIGNS IN TRANSFUSION TAB. WILL CONTINUE TO MONITOR.
--- NOTE | 2019-04-10 10:15 | NUR ---
NO S/S OF BLOOD TRANSFUSION REACTION. WILL CONTINUE TO MONITOR
[2019-04-10] MEDS: AZITHROMYCIN 500MG/ 250ML 250 ML IV SCH (10:30)
[2019-04-10] MEDS: LINEZOLID 600MG/300ML 300 ML IV SCH ×2 (10:30→23:00)
[2019-04-10] MEDS: MIDAZOLAM DRIP 50 mg/50mL 50 ML IV SCH (11:00)
[2019-04-10] MEDS: NOREPINEPHRINE 8 MG/250ML KIT 250 ML IV SCH (11:01)
--- NOTE | 2019-04-10 12:00 | NUR ---
DR. SERRATO CALLED ORDERS RECEIVED
[2019-04-10 12:22] LABS: BUN/Creatinine Ratio 46.8; Calcium 8.3 mg/dL (8.5-10.1); Potassium 4.8 mmol/L (3.5-5.1)
--- NOTE | 2019-04-10 12:30 | NUR ---
DR. COLEMAN CALLED ORDERS RECEIVED
--- NOTE | 2019-04-10 12:58 | NUR ---
2ND UNIT OF PRBC STARTED. SEE TRANSFUSION TAB FOR VITAL SIGNS. WILL CONTINUE TO MONITOR
--- NOTE | 2019-04-10 13:13 | NUR ---
NO S/S OF TRANSFUSION REACTION WILL CONTINUE TO MONITOR
[2019-04-10 13:41] LABS: Urine Bacteria NONE SEEN /hpf (None Seen); Urine Blood 1+ /uL (Negative); Urine Mucus FEW (None Seen); Urine Specific Gravity 1.013 (1.001-1.035); Urine WBC 1 /hpf (0 - 3)
[2019-04-10] MEDS: PANTOPRAZOLE 80 MG in SODIUM CHL 0.9% 60 ML IV SCH (15:27)
--- NOTE | 2019-04-10 15:40 | NUR ---
DR. Ana Cristina SERRATO AT BEDSIDE SPOKE WITH SISTER FARRAH. STATED THAT SHE WOULD LIKE TO TERMINAL WEAN TOMORROW AM AND HAS POA. AWAITING CALL OR FOR DAUGHTER LEYDI TO ARRIVE WITH VERIFICATION
--- NOTE | 2019-04-10 16:00 | NUR ---
500ML COLD WATER LAVAGE GIVEN. PT TOLERATED WELL
[2019-04-10 17:31] LABS: Hematocrit 23.6 % (41.0-53.0)
[2019-04-10 17:47] LABS: INR 1.16 (0.9-1.15); Partial Thromboplastin Time 34.5 sec (23.64-32.05)
--- NOTE | 2019-04-10 17:59 | NUR ---
Respiratory note: RECEIVED PT ON VENT V19, VENT CONNECTED TO RED OUTLET AND O2 SOURCE. ALARMS ARE SET AND AUDIBLE AMBU BAG AND MASK AT BEDSIDE. BS ARE COURSE T/O, SXD LARGE AMOUNT OF THICK RODRÍGUEZ W/ BLOOD TINGE. MED NEB TX GIVEN INLINE WITHOUT ADVERSE REACTION NOTED. PTS SISTER AT BEDSIDE. PTS CURRENT TEMP IS 97.5F. WILL CONTINUE TO MONITOR Q2H AND MORE NEEDED. RT NAME AND PAGER ASSIGNMENT WRITTEN ON PTS ROOM BOARD.
--- NOTE | 2019-04-10 19:15 | NUR ---
CLOSING NOTE SHIFT REPORT GIVEN AND CARE ENDORSED TO TROY BUTT
--- NOTE | 2019-04-10 19:58 | NUR ---
Respiratory note: AT BEDSIDE FOR ROUTINE VENT CHECK. NO VENT CHANGES MADE AT THIS TIME. WILL CONTINUE TO MONITOR.
--- NOTE | 2019-04-10 19:58 | NUR ---
Respiratory note: AT BEDSIDE FOR ROUTINE VENT CHECK. NO VENT CHANGES MADE AT THIS TIME. WILL CONTINUE TO MONITOR. Addendum: 04/10/19 at 2121 by Brigitte Persaud, RT CHARTED UNDER WRONG CAREGIVER.
--- NOTE | 2019-04-10 21:57 | NUR ---
Respiratory note: RECEIVED PT ON HFNC UNIT, UNIT CONNECTED TO RED OUTLET O2 AND MEDICAL AIR SOURCE. ALARMS ARE SET AND AUDIBLE. AMBU BAG AND MASK AT BEDSIDE. BS ARE DIMINISHED T/O, MED NEB TX GIVEN VIA MOUTHPIECE. CPT GIVEN VIA BED. RT NAME AND PAGER ASSIGNMENT WRITTEN ON PTS ROOM BOARD. WILL CONTINUE TO MONITOR Q4H AND PRN.
[2019-04-11] VITALS (83 sets, daily range): BP systolic 77–117; BP diastolic 51–79
[2019-04-11] MEDS: ALBUTEROL SULF 2.5 MG/0.5ML(0.5%) NEB SOLN NEB SCH ×4 (00:02→18:30)
--- NOTE | 2019-04-11 00:02 | NUR ---
Respiratory note: AT BEDSIDE FOR ROUTINE VENT CHECK. MED NEB TX GIVEN INLINE WITHOUT ADVERSE REACTION NOTED. CURRENT TEMP IS 97.7F. NO VENT CHANGES MADE AT THIS TIME. WILL CONTINUE TO MONITOR.
[2019-04-11] MEDS: PANTOPRAZOLE 80 MG in SODIUM CHL 0.9% 60 ML IV SCH ×2 (01:05→11:00)
--- NOTE | 2019-04-11 02:06 | NUR ---
Respiratory note: AT BEDSIDE FOR ROUTINE VENT CHECK. CURRENT TEMP IS 97.5F. NO VENT CHANGES MADE AT THIS TIME. WILL CONTINUE TO MONITOR.
[2019-04-11] MEDS: PIPERACILLIN-TAZOB 2.25GM 50 ML IV SCH ×2 (04:00→12:00)
[2019-04-11 04:32] LABS: Basophils # (auto) 0 uL; Eosinophils # (auto) 0 uL; Monocytes # (auto) 0.6 uL; Neutrophils # (auto) 5.1 uL
[2019-04-11 04:37] LABS: Basophils % (auto) 0.1 % (0.0-2.0); Eosinophils % (auto) 0.5 % (0.0-7.0); Hematocrit 20.6 % (41.0-53.0); Hemoglobin 7.2 g/dL (13.5-17.5); Lymphocytes # (auto) 0.5 uL; Lymphocytes % (auto) 7.5 % (10.0-50.0); Mean Corpuscular Hemoglobin 34.5 pg (28.0-32.0); Mean Corpuscular Hgb Conc. 34.7 g/dL (32.0-36.0); Mean Corpuscular Volume 99.5 fL (80.0-100.0); Monocytes % (auto) 9.5 % (0.0-12.0); Neutrophils % (auto) 82.4 % (37.0-80.0); Nucleated Red Blood Cells % 0.3 %; Platelet Count (auto) 77 10^3/uL (140-450); Red Blood Cells 2.07 10^6/uL (4.5-5.90); White Blood Cell 6.3 10^3/uL (4.4-10.8)
[2019-04-11 04:46] LABS: Calcium 7.8 mg/dL (8.5-10.1); Potassium 3.7 mmol/L (3.5-5.1)
[2019-04-11 04:50] LABS: INR 1.08 (0.9-1.15)
[2019-04-11 04:52] LABS: BUN/Creatinine Ratio 48.5
[2019-04-11 04:59] LABS: Red Cell Distribution Width 21.7 % (11.8-14.3)
[2019-04-11] MEDS: PHENYLEPHRINE INJ 20 MG in SODIUM CHL 0.9% 250 ML IV SCH ×3 (08:14→14:08)
--- NOTE | 2019-04-11 08:30 | NUR ---
WOUND CARE NOTE: PATIENT ADMITTED TO [facility] WITH DIAGNOSIS OF SEPSIS, AND NSTEMI. HE WAS NOTED TO HAVE WOUNDS UPON ADMIT, WOUND PHOTOS TAKEN AT THAT TIME BY BEDSIDE NURSE FOR REFERENCE, WOUND CONSULT ORDERED. PATIENT HAS A CURRENT DIVYA SCORE OF 11. HE IS INTUBATED, SEDATED. PATIENT HAS PRESSURE INJURIES TO THE SACRUM AND RIGHT LATERAL FOOT. HE ALSO HAS A SKIN TEAR OR OPEN BLISTER TO THE RIGHT ARM/ELBOW. PATIENT IS SCHEDULED FOR A TERMINAL WEAN SOMETIME TODAY. HE WILL BE MADE COMFORT MEASURES AT THAT TIME PER BEDSIDE NURSE. SKIN/WOUND CARE PLAN IMPLEMENTED. RECOMMEND: Q 2 HOUR/PRN TURN SCHEDULE CONDITION PERMITS, DAILY/ PRN APPLICATION WITH ZGUARD, OPTIFOAM GENTLE SACRAL DRESSING TO SACRAL WOUNDS, PRN OPTIFOAM GENTLE DRESSING TO RIGHT FOOT WOUNDS, CONTINUED MONITORING BY WOUND CARE TEAM.
--- NOTE | 2019-04-11 09:00 | NUR ---
visits and examines patient - no new orders received.
--- NOTE | 2019-04-11 09:00 | NUR ---
Versed decreased to 3 mg/hr.
[2019-04-11] MEDS: LINEZOLID 600MG/300ML 300 ML IV SCH (09:01)
--- NOTE | 2019-04-11 10:00 | NUR ---
Issa from Hospice phoned - given update on patient and patient's family's request to meet with Dr. Ana Cristina Griffith and discuss terminal weaning option for patient.
[2019-04-11] MEDS: AZITHROMYCIN 500MG/ 250ML 250 ML IV SCH (11:45)
--- NOTE | 2019-04-11 11:55 | NUR ---
DR. SANTIAGO VISITS AND EXAMINES VISITS AND SPEAKS AT LENGTH WITH PATIENT'S DAUGHTER AND SISTER RE: TERMINAL WEAN FROM VENTILATOR - BOTH VERBALIZED UNDERSTANDING UNDERSTANDING - ORDERS RECEIVED.
[2019-04-11] MEDS: NOREPINEPHRINE 8 MG/250ML KIT 250 ML IV SCH (13:14)
[2019-04-11] MEDS: MIDAZOLAM DRIP 50 mg/50mL 50 ML IV SCH (13:14)
--- NOTE | 2019-04-11 13:45 | NUR ---
DR SHARP VISITS AND EXAMINES PATIENT - ORDERS RECEIVED.
[2019-04-11] MEDS ORDERED: MORPHINE SULF INJ 2 MG/ML SYRINGE 1ML IV PRN (14:45)
[2019-04-11] MEDS ORDERED: DOCUSATE ORAL LIQUID 100 MG/10 ML UD GT PRN (14:45)
[2019-04-11] MEDS ORDERED: ONDANSETRON HCL 4 MG/2 ML VIAL IV PRN (14:45)
[2019-04-11] MEDS ORDERED: LORazepam 2MG/ML-1ML VIAL IV PRN (14:45)
--- NOTE | 2019-04-11 14:46 | NUR ---
DR SHARP CONTACTED RE: TERMINAL WEAN PLANS FOR TODAY - ORDER RECEIVED TO DC CARDIAC ECHO.
--- NOTE | 2019-04-11 14:55 | NUR ---
DR DIALLO VISITS - SALES AND SUPPORT CENTER AGENT INFORMED HIM OF MALLORY MAYER THIS AM AND PLANS FOR TERMINAL WEAN TODAY.
--- NOTE | 2019-04-11 15:20 | NUR ---
Respiratory note: PT TERMINALLY EXTUBATED PER DRS ORDERS. RN NAOMI AND FAMILY AT BEDSIDE.
--- NOTE | 2019-04-11 15:29 | NUR ---
assessment Patient is a 58 year old male on a vent. Per patients daughter Fior prior to admission patient lived home alone and was independent. Per Fior she and family are meeting with MD's today to discuss terminal wean. I informed Fior patient has a consult for consult for hospice. I informed Fior per nurse notes Lulú from [facility] has been calling the nursing floor about patient. Per Fior she never contacted [facility]. I informed Fior Villarreal would come to bedside and provide her with a list of hospice companies. Per Fior she wants to choose her own hospice. Cherelle JUAN CARLOS mercer has provided said list. Waiting on decision now. Addendum: 04/11/19 at 1534 by Lynette SNYDER Amended: Links added.
--- NOTE | 2019-04-11 15:30 | NUR ---
CASE ADVOCATE PHONED DR Ana Cristina SANTIAGO FOR ADDITIONAL COMFORT CARE ORDERS - RECEIVED. PATIENT'S FAMILY REQUESTED CASE ADVOCATE NOT TO DISCONTINUE LEVOPHED AT THIS TIME UNTIL THEY RETURN FROM [place].
--- NOTE | 2019-04-11 16:30 | NUR ---
Discharge planning per consult for hospice evaluation. Placed a call, spoke with sister Micaela and was advise that they are choosing [facility]. Referral faxed, received a follow up call from Hallie who advised a nurse will come between 6:30-7pm for evaluation and to speak with family. Addendum: 04/11/19 at 1644 by SHEILA WONG Amended: Links added.
--- NOTE | 2019-04-11 18:40 | NUR ---
PATIENT'S SISTER RETURNS TO PATIENT'S BEDSIDE.
--- NOTE | 2019-04-11 19:10 | NUR ---
HOSPICE NURSE IN TO SEE PATIENT'S SISTER ZARINA AT BEDSIDE.
--- NOTE | 2019-04-11 19:40 | NUR ---
RECEIVED REPORT AND ASSUMED CARE; SEE INTERVENTIONS FOR ASSESSMENT; PT. IS A TERMINAL WEAN AND EXTUBATED AT 15:00 AND LEVOPHED AND IVF OFF NOW; SISTER AT BEDSIDE; PT. REPOSITIONED FOR COMFORT; WILL CONT. TO MONITOR.
[2019-04-11] MEDS ORDERED: PANTOPRAZOLE 40 MG/10 ML VIAL INJ IV SCH (22:00)
[2019-04-12] VITALS (16 sets, daily range): BP systolic 72–100; BP diastolic 37–59
[2019-04-12] MEDS: ALBUTEROL SULF 2.5 MG/0.5ML(0.5%) NEB SOLN NEB SCH ×3 (00:20→12:10)
--- NOTE | 2019-04-12 06:55 | NUR ---
PT. O2 SATS DROPPED TO 88% AND INCREASED O2 TO 3L BY NC; WILL CONT. TO MONITOR.
--- NOTE | 2019-04-12 09:15 | NUR ---
Spoke to Cherelle in - states patient will be discharged today to home with hospice - will inform patient's sister Micaela.
[2019-04-12] MEDS ORDERED: PANTOPRAZOLE 40 MG/10 ML VIAL INJ IV SCH (10:00)
--- NOTE | 2019-04-12 10:22 | NUR ---
Transport company phones - states that they will be arriving for patient transport to home between 1:00-2:00. [employer] Dispatcher verified patient code status and O2 needs.
--- NOTE | 2019-04-12 13:57 | NUR ---
DISCHARGE PHOTOS TAKEN AND SET IN CHART.
--- NOTE | 2019-04-12 13:58 | NUR ---
D/C MRSA SWAB VIA [facility] SENT.
--- NOTE | 2019-04-12 14:53 | NUR ---
PATIENT DISCHARGED PER HOSPICE TRANSPORT TO HOME PER STRETCHER ON 3L PER NC. CONDITION APPEARS STABLE FOR TRANSFER TO HOME WITH HOSPICE.
--- NOTE | 2019-04-12 16:22 | NUR ---
Discharge planning per consult, patient has order to dc on hospice. Family (sister Micaela) presented with options, family choose [facility]. Referral sent, received a follow up call from Hallie and was advised that they will come to evaluate this patient. Upon eval, patient met criteria and will be admitted to hospice on discharge. Patient was discharged home today 04.12.19, on [facility]. Transportation was arranged with [phone], and scheduled roller picker time is between 2:30-3:30pm. Nurse Kwon was advised of dc plan. Addendum: 04/12/19 at 1627 by SHEILA WONG Amended: Links added.
== END 2019-04-12 14:40 | disposition hospice, home (50) | DRG 720 ==
LOC: EDBD 13:00 → ER 13:00 → OVERFLOW 13:01 → ICU WEST 20:54
PROVIDERS: ADMIT Internal Medicine; ATTEND Internal Medicine
PROC: 5A1945Z Respiratory Ventilation, 24-96 Consecutive Hours (ICD-10-PCS; principal; 2019-04-09)
PROC: 0BH17EZ Insertion of Endotracheal Airway into Trachea, Via Natural or Artificial Opening (ICD-10-PCS; 2019-04-09)
PROC: 30233N1 Transfusion of Nonautologous Red Blood Cells into Peripheral Vein, Percutaneous Approach (ICD-10-PCS; 2019-04-10)
DX: A41.9 Sepsis, unspecified organism (principal); I21.4 Non-ST elevation (NSTEMI) myocardial infarction; N17.0 Acute kidney failure with tubular necrosis; J96.01 Acute respiratory failure with hypoxia; I46.9 Cardiac arrest, cause unspecified; J18.9 Pneumonia, unspecified organism; G93.41 Metabolic encephalopathy; E44.0 Moderate protein-calorie malnutrition; D69.6 Thrombocytopenia, unspecified; E87.2 Acidosis; R65.21 Severe sepsis with septic shock; E87.0 Hyperosmolality and hypernatremia; J44.0 Chronic obstructive pulmonary disease with (acute) lower respiratory infection; D64.9 Anemia, unspecified; K56.41 Fecal impaction; N18.3 Chronic kidney disease, stage 3 (moderate); Z66 Do not resuscitate; K21.9 Gastro-esophageal reflux disease without esophagitis; F03.90 Unspecified dementia, unspecified severity, without behavioral disturbance, psychotic disturbance, mood disturbance, and anxiety; E78.5 Hyperlipidemia, unspecified; I25.10 Atherosclerotic heart disease of native coronary artery without angina pectoris; Z51.5 Encounter for palliative care; M19.90 Unspecified osteoarthritis, unspecified site; I13.0 Hypertensive heart and chronic kidney disease with heart failure and stage 1 through stage 4 chronic kidney disease, or unspecified chronic kidney disease; Z74.01 Bed confinement status; I25.2 Old myocardial infarction; Z79.899 Other long term (current) drug therapy; Z86.73 Personal history of transient ischemic attack (TIA), and cerebral infarction without residual deficits; Z95.0 Presence of cardiac pacemaker; Z79.82 Long term (current) use of aspirin; Z68.22 Body mass index [BMI] 22.0-22.9, adult
CPT/HCPCS: 31500; 36415; 36556; 36600; 51702; 70450; 71045; 71250; 74176; 76775; 80048; 80053; 81001; 82550; 82805; 83605; 84484; 85014; 85018; 85025; 85045; 85610; 85730; 86850; 86900; 86901; 86920; 87040; 87070; 87076; 87077; 87081; 87086; 87186; 87205; 94002; 94003; 94640; 96365; 96366; 96368; 99291; C9113; G0378; J2001; J2250; J2543